=== PATIENT | male | born 1995 | race Caucasian/White ===

== ENCOUNTER 2020-07-03 19:23 | Emergency (ER) | payer BC, SELFPAY ==
[2020-07-03 19:32] VITALS: BP 149/91; PULSE 79; RESP 17; TEMP 36.6; O2SAT 99; BMI 28.3
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
[2020-07-03 19:37] VITALS: BP 149/91; PULSE 77; RESP 17; O2SAT 100
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
[2020-07-03] MEDS: ondansetron 2 mg/ML SDV 2 mL 4 MG IM (19:54)
[2020-07-03 19:55] VITALS: RESP 19; O2SAT 100
[2020-07-03] MEDS: morphine 4 mg/mL SDV 1 mL IVP (19:55)
[2020-07-03] MEDS: iodixanol 320 mg/mL 100mL Btl IV (20:12)
[2020-07-03 21:31] VITALS: BP 145/84; PULSE 72; RESP 18; O2SAT 99
== END 2020-07-03 21:31 | disposition home or self-care (01) ==
PROVIDERS: Emergency Provider Emergency Medicine
DX: S30.811A Abrasion of abdominal wall, initial encounter (principal); S20.319A Abrasion of unspecified front wall of thorax, initial encounter; V29.9XXA Motorcycle rider (driver) (passenger) injured in unspecified traffic accident, initial encounter
CPT/HCPCS: 71045; 73552; 74177; 96372; 96374; 99283; J2270; J2405; Q9967

== ENCOUNTER 2020-10-23 05:24 | Emergency (ER) | payer BC, SELFPAY ==
[2020-10-23 05:28] VITALS: PULSE 97; RESP 22; TEMP 36.9; O2SAT 100; BMI 29.4
[2020-10-23 05:35] VITALS: BP 120/61; PULSE 89; RESP 20; O2SAT 100
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
--- NOTE | 2020-10-23 05:36 | CTR_ITS ---
PROCEDURE INFORMATION: Exam: CT Abdomen And Pelvis Without Contrast Exam date and time: 10/23/2020 5:36 AM Age: 24 years old Clinical indication: Abdominal pain; Prior surgery; Surgery type: Appy; Patient HX: Left flank pain. History of left calcified adrenal gland. TECHNIQUE: Imaging protocol: Computed tomography of the abdomen and pelvis without contrast. Radiation optimization: All CT scans at this facility use at least one of these dose optimization techniques: automated exposure control; mA and/or kV adjustment per patient size (includes targeted exams where dose is matched to clinical indication); or iterative reconstruction. COMPARISON: CT abdomen pelvis w con* [id number] 07/03/2020 8:25 PM RADIATION DOSE METRICS: Total DLP (mGy-cm): 1443.97 FINDINGS: Lungs: The lung bases are clear. Mediastinal space: Small hiatal hernia, about 3 cm in diameter. This is a new finding in the interval. Liver: Unremarkable. Gallbladder and bile ducts: No definite gallbladder abnormality by CT. No biliary tree dilation. Pancreas: Unremarkable. Spleen: Unremarkable. Adrenal glands: Calcifications are again seen in the left adrenal gland, not significantly changed. This may be secondary to prior/remote hemorrhage or infection. The right adrenal gland appears unremarkable. Kidneys and ureters: Mild left hydronephrosis and hydroureter. There is a 3 mm distal left ureteral calculus, at the UVJ. The calculus is probably in the intramural portion of the distal left ureter. It is possible that it has already been passed into the urinary bladder. Please correlate clinically. No definite/visible intrarenal calculus. The right kidney appears essentially unremarkable. Stomach and bowel: There are no CT findings to strongly suggest diverticulitis. Appendix: Reportedly, there has been prior appendectomy. Intraperitoneal space: No free air, ascites, or bowel distention. Vasculature: No evidence for abdominal aortic aneurysm. Lymph nodes: No retroperitoneal adenopathy. Urinary bladder: The urinary bladder is essentially empty, limiting evaluation. Reproductive: Essentially unremarkable for age. Bones/joints: No significant acute finding. Soft tissues: Several umbilical region and supraumbilical region ventral hernias, containing only fat. The appearance is similar to the prior exam. CT/CT kidney stone [id number] IMPRESSION: 1. 3 mm distal left ureteral calculus, see above details. 2. Mild left hydronephrosis and hydroureter. 3. Small hiatal hernia. 4. Other findings discussed above. Radiation Dose CTDIVOL = (mGy): DLP = 1443.97 (mGy-cm)
[2020-10-23 05:53] LABS: Add Urine Culture? No; Add Urine Microscopic? YES; Bacteria Urine TRACE /hpf; Bilirubin Urine 1+ (Negative); Blood Urine 2+ (Negative); Glucose Urine UA Norm (Normal); Ketones Urine Negative (Negative); Leukocyte Esterase Urine Negative (Negative); Mucus Urine 2+ /hpf; Nitrate Urine Negative (Negative); Protein Urine Neg (Negative); Specific Gravity, Urine 1.025 (1.005-1.030); Squamous Epithelial Cell Urine 0-4 /hpf (0-5); Urine Appearance Clear (CLEAR); Urine Color Yellow (Yellow); Urobilinogen Urine 1 mg/dL (Negative); WBC Urine 0-4 /hpf (0-5); pH Urine 5 (5-7)
[2020-10-23] MEDS: ketorolac 30 mg/mL INJ 15 MG IVP (05:54)
[2020-10-23] MEDS: ondansetron 2 mg/ML SDV 2 mL 4 MG IVP (05:55)
[2020-10-23] MEDS: sodium chloride 0.9% 1,000 ML 999 ML IV (05:55)
[2020-10-23 06:00] LABS: Basophils # 0.1 10^3/uL (0.0-0.1); Basophils % 0.9 %; Eosinophils # 0.1 10^3/uL (0.0-0.8); Eosinophils % 1.6 %; Hematocrit 42.6 % (42.0-52.0); Hemoglobin 14.3 g/dL (11.7-16.6); Lymphocytes # 3.4 10^3/uL (0.8-4.8); Lymphocytes % 50.4 %; Mean Corpuscular HGB Conc 33.6 g/dL (30.0-36.0); Mean Corpuscular Hemoglobin 29.1 pg (28.0-34.0); Mean Corpuscular Volume 86.6 fL (80-94); Monocytes # 0.8 10^3/uL (0.2-0.9); Monocytes % 11.4 %; Neutrophils # 2.41 10^3/uL (1.8-7.7); Neutrophils % 35.4 %; Nucleated Red Blood Cells % 0 %; Platelet Count 396 10^3/cmm (130-400); Red Blood Count 4.92 10^6/uL (4.1-5.3); Red Cell Distribution Width 12.6 % (12.1-15.1); White Blood Count 6.8 10^3/uL (4.0-10.0)
[2020-10-23 06:03] VITALS: BP 107/45; PULSE 89; RESP 20; TEMP 36.9; O2SAT 100
[2020-10-23 06:33] LABS: Alanine Aminotransferase 31 U/L (0-41); Albumin Level 4.3 g/dL (3.5-5.2); Alkaline Phosphatase 73 IU/L (40-130); Anion Gap 20.2 (5-19); Aspartate Amino Transferase 32 U/L (0-40); Blood Urea Nitrogen 14 mg/dL (6-20); Calcium 8.9 mg/dL (8.5-10.5); Carbon Dioxide 19 mmol/L (22-29); Chloride 103 mmol/L (98-107); Globulin 2.9 g/dL (1.3-4.6); Glomerular Filtration Rate 93.4 mL/min (90-130); Glucose 123 mg/dL (65-115); Osmolality Calculated 290 mOsm/kg (285-295); Potassium 3.2 mmol/L (3.5-5.1); Sodium 139 mmol/L (136-145); Total Bilirubin 0.9 mg/dL (0.15-1.2); Total Protein 7.2 g/dL (6.6-8.7)
[2020-10-23 08:31] VITALS: BP 103/57; O2SAT 98
[2020-10-23] MEDS: potassium chloride oral liq 20 mEq/15 mL UDC 80 MEQ PO (08:40)
[2020-10-23 08:45] VITALS: BP 109/82; PULSE 56; RESP 17; O2SAT 99
[2020-10-23 08:49] VITALS: BP 109/82; PULSE 56; RESP 17; O2SAT 99
--- NOTE | 2020-10-23 09:55 | DCPLANNER ---
manager auto had message to schedule a follow up appointment for patient with Dr. Mendez for left ureterolithiasis. manager auto called the office of Dr. Mendez, spoke with Edda, gave clinic patients information. manager auto was told that patients information would be printed and reviewed. Clinic will call patient with appointment information.
--- NOTE | 2020-10-25 10:00 | DCPLANNER ---
Patient has a follow up appointment scheduled for Thursday, November 26, [address] at 4:[address] Mendez. Clinic will call patient with appointment information.
--- NOTE | 2020-11-28 12:44 | DCPLANNER ---
Patient had a follow up appointment scheduled for 11.26.20 - appointment was rescheduled.
== END 2020-10-23 08:48 | disposition home or self-care (01) ==
PROVIDERS: Emergency Medicine; Emergency Provider Family Medicine
DX: N20.1 Calculus of ureter (principal)
CPT/HCPCS: 74176; 80053; 81001; 85025; 96361; 96374; 96375; 99284; J1885; J2405; J7030

== ENCOUNTER 2022-03-15 13:33 | Emergency (ER) | payer SELFPAY ==
[2022-03-15 13:44] VITALS: BP 126/80; PULSE 87; RESP 16; TEMP 37.4; O2SAT 97; BMI 29.5
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
[2022-03-15 16:26] VITALS: PULSE 79; O2SAT 98
== END 2022-03-15 16:20 | disposition home or self-care (01) ==
PROVIDERS: Emergency Provider Family Medicine; PCP Urology
DX: S00.03XA Contusion of scalp, initial encounter (principal); S16.1XXA Strain of muscle, fascia and tendon at neck level, initial encounter; W17.89XA Other fall from one level to another, initial encounter
CPT/HCPCS: 70450; 72125; 99284

== ENCOUNTER 2022-03-22 15:10 | Emergency (ER) | payer SELFPAY ==
--- NOTE | 2022-03-22 15:11 | XRR_ITS ---
PROCEDURE INFORMATION: Exam: XR Right Wrist Exam date and time: 03/22/2022 3:17 PM Age: 26 years old Clinical indication: Injury or trauma; Other: Wood cutting blunt trauma; Blunt trauma (contusions or hematomas); Injury details: Pain in metacarpal of 1st digit of right hand, included on wrist x rays TECHNIQUE: Imaging protocol: Radiologic exam of the Right wrist. Views: 3 or more views. COMPARISON: No relevant prior studies available. FINDINGS: Bones/joints: Osseous structures are intact. Negative for fracture. Joint spaces are preserved. Soft tissues: Normal. XR/XR wrist RT min 3V* [id number] IMPRESSION: No acute findings.
[2022-03-22 15:12] VITALS: BP 139/90; PULSE 80; RESP 16; TEMP 36.9; O2SAT 98
--- NOTE | 2022-03-22 15:21 | W.ED.EXTPRO ---
HPI - Extremity Problem General: Chief complaint: Extremity Injury, Upper Stated complaint: right wrist pain Time Seen by Provider: 03/22/22 15:11 Source: patient Mode of arrival: ambulatory Limitations: no limitations History of Present Illness: 26-year-old male states that he had a stack of wood fall on his right hand yesterday been having pain to his right palm since then and bruising states the pain is a 5 out of 10 worse with movement improved with rest. Associated symptoms: Deny chest pain, fever(s) or rash Review of Systems Const: Denies: fever(s), chills, body aches or change in appetite Eyes: Denies: blurry vision or eye discomfort ENMT: Denies: throat pain or dental pain Card: Denies: chest pain Resp: Denies: dyspnea GI: Denies: abdominal pain, nausea, vomiting or diarrhea : Denies: dysuria Musc: Reports: extremity pain Skin/Breast: Denies: rash Neuro: Denies: headache(s) Psych: Denies: depression Mervin/Lymph: Denies: easy bruising All/Imm: Denies: urticaria PFSH ED PFSH: Medical History No pertinent past medical history Social History Smoking and tobacco status: never smoked Physical Exam Const: COMMON NORMALS: no acute distress and patient oriented x3 HENMT: COMMON NORMALS: normocephalic HEAD & SCALP: normocephalic Eye: COMMON NORMALS: conjunctivae normal CONJUNCTIVA: Yes conjunctivae normal Neck/C-Spine: COMMON NORMALS: supple Chest: COMMONS NORMALS: normal inspection of the chest Resp: COMMON NORMALS: normal respiratory effort Cardio: COMMON NORMALS: regular rate RATE: regular rate GI: INSPECTION: Yes normal to inspection Extremity: OTHER: Bruising to right hand at the thenar eminence with tenderness Neuro: COMMON NORMALS: patient oriented x3 Psych: COMMON NORMALS: mental status grossly normal Skin: COMMON NORMALS: no rashes or lesions noted GENERAL SKIN EXAM: no rashes or lesions noted Course Vital Signs: Vital signs: Vital Signs Temperature 98.5 F 03/22/22 15:12 Pulse Rate 80 03/22/22 15:12 Respiratory Rate 16 03/22/22 15:12 Blood Pressure 139/90 03/22/22 15:12 Pulse Oximetry 98 03/22/22 15:12 MDM - Extremity (Nontraumatic) Medical Decision Making Patient presents with a hand contusion x-ray shows no fracture patient Devan wrap he is to ice he is stable for discharge. Lab Data Radiology Impressions Wrist X-Ray 03/22/22 15:11 IMPRESSION: No acute findings. Discharge Plan Discharge Patient Disposition: Home Clinical Impression: Contusion of hand Condition: Stable Prescriptions: New Naprosyn 500 mg tablet 500 mg PO BID PRN (Reason: pain) Qty: 20 0RF No Action cephalexin 500 mg capsule 500 mg PO Q12H 7 Days Qty: 14 0RF methylprednisolone [Medrol (Maicol)] 4 mg tablets,dose pack See Rx Instructions PO PER PKG DIR Qty: 21 0RF Rx Instructions: PO PER PKG DIR pantoprazole 40 mg tablet,delayed release (DR/EC) 40 mg PO DAILY hydrocodone-acetaminophen 5-325 mg tablet 1 tab PO Q6H PRN (Reason: pain) Qty: 20 0RF Zofran 4 mg tablet 4 mg PO Q6H PRN (Reason: nausea and vomiting) Qty: 20 0RF tamsulosin 0.4 mg capsule 0.4 mg PO DAILY Qty: 30 0RF cyclobenzaprine 10 mg tablet 10 mg PO TID PRN (Reason: muscle spasm) Qty: 12 1RF Discharge Orders: Discharge ED (Routine); Ordered 03/22/22 Ordered By: Dipika Mancera Referrals: Shaan Mendez MD [Primary Care Provider] - Discharge Diet: Advance as tolerated Discharge Activity: Resume usual activity Patient Instructions: Contusion in Adults (ED) Coding Level of Care Code ED Supervisor Production for Chg Fwd Exam Comprehensive
== END 2022-03-22 15:35 | disposition home or self-care (01) ==
PROVIDERS: Emergency Provider Emergency Medicine; PCP Urology
DX: S60.221A Contusion of right hand, initial encounter (principal); W20.8XXA Other cause of strike by thrown, projected or falling object, initial encounter
CPT/HCPCS: 73110; 99283

== ENCOUNTER 2022-05-15 12:21 | Emergency (ER) | payer OTHER, SELFPAY ==
[2022-05-15 12:33] VITALS: BP 127/75; PULSE 68; RESP 14; TEMP 36.8; O2SAT 98
--- NOTE | 2022-05-15 13:22 | W.ED.SKABFB ---
HPI - Skin/Abscess/Foreign Bdy General: Chief complaint: Skin/Abscess/Foreign Body Stated complaint: spider bite and infected Time Seen by Provider: 05/15/22 13:03 Source: patient and family Mode of arrival: ambulatory Limitations: no limitations History of Present Illness: This patient makes his way to the emergency department today because of concerns about an air redness and inflammation in his right lower leg. Dates he noted this 2 days ago. He states he was seen at urgent care clinic and apparently an aspiration was attempted. He states he was also prescribed antibiotics but has not taken those yet. He is unaware of any known bite or injury. He denies any fevers or chills. He states he has had increasing redness in the area and some soreness in his more proximal leg. He denies any fevers or chills numbness weakness etc. No history of allergies to bites or stings. He is unaware of his last tetanus. MD complaint: insect bite/sting and discoloration Location: RLE Severity: moderate Quality: burning and aching Relieving factors: none Exacerbating factors: none Associated symptoms: Deny chills, fever(s), nausea or vomiting Treatments prior to arrival: OTC topical medication Review of Systems Const: Denies: fever(s) or chills Eyes: Denies: change in vision ENMT: Denies: throat pain or odynophagia Card: Denies: palpitations, lightheadedness, syncope or pre-syncope Resp: Denies: dyspnea, wheezing or stridor GI: Denies: abdominal pain, nausea or vomiting Musc: Reports: extremity pain Skin/Breast: Reports: rash, erythema and skin tenderness Neuro: Denies: headache(s), numbness in extremities or weakness in extremities PFSH ED PFSH: Medical History No pertinent past medical history Social History Smoking and tobacco status: never smoked Physical Exam Narrative: EXAM NARRATIVE: He makes good eye contact. Appears to be in no acute distress. Answers questions in an appropriate goal-directed fashion. Const: COMMON NORMALS: no acute distress, average body habitus and patient oriented x3 GENERAL APPEARANCE: cooperative and comfortable HENMT: COMMON NORMALS: normocephalic HEAD & SCALP: normocephalic FACE & SINUS: normal facial exam Eye: COMMON NORMALS: Equal, round and reactive pupils present and no scleral icterus PUPIL: Yes Equal, round and reactive pupils present Neck/C-Spine: COMMON NORMALS: full ROM Resp: COMMON NORMALS: normal respiratory effort, No retractions and No use of accessory muscles EFFORT & INSPECTION: Yes able to speak in complete sentences Cardio: COMMON NORMALS: Peripheral pulses 2+ throughout PERIPHERAL PULSES: Peripheral pulses 2+ throughout Back/Pelvis: COMMON NORMALS: thoracic and lumbar spine normal to inspection Extremity: RIGHT LOWER EXTREMITY: Yes lower leg OTHER: Examination of musculoskeletal system with attention to his right lower leg reveals an area right middle third of his lower leg on the lateral aspect. There is an area of erythema that measures approximately 5 cm in diameter and its greatest measurement. There is an area approximately 5 mm in the center of this erythema that is dark and necrotic appearing. There is no fluctuance noted. There is no drainage noted. There is no proximal lymphangitis or lymphadenopathy noted. He has normal range of motion at the knee and hip. No inguinal adenopathy noted today. Neurovascular intact distally. Neuro: COMMON NORMALS: patient oriented x3, moves all extremities, no focal motor deficits and no sensory deficits noted Skin: COMMON NORMALS: turgor normal SKIN IMAGES (MALE): 1. Area of erythema with 5 mm central necrosis. GENERAL SKIN EXAM: turgor normal, erythema (Right middle third lateral leg), no fluctuance, no petechiae and no purpura Course Vital Signs: Vital signs: Vital Signs Temperature 98.2 F 05/15/22 12:33 Pulse Rate 68 05/15/22 12:33 Respiratory Rate 14 05/15/22 12:33 Blood Pressure 127/75 05/15/22 12:33 Pulse Oximetry 98 05/15/22 12:33 Oxygen Delivery Me thod 05/15/22 12:33 MDM - Skin/Abscess/Foreign Bdy Medicial Decision Making Gentleman who presented to the emergency department because of concerns about increasing redness and soreness in his right leg. Previously seen at urgent care where aspiration was performed without any fluid return antibiotics prescribed but not taken. No systemic symptoms. No evidence today that suggest systemic illness to include sepsis etc. He is current clinical picture suggest spider bite and given the clinical picture in the time of the year strongly supports likely brown recluse bite. He has what appears to be secondary cellulitis to the region as well. He has a prescription for trimethoprim sulfa and I encouraged him to begin that medication and complete it. We will also update his tetanus and provide a single injection of dexamethasone. We discussed likely and usual course of such bites but also discussed reasons to return to the emergency department. Both he and his family voiced understanding of our discussion. Stable at this time for discharge with return precautions. Discharge Plan Discharge Patient Disposition: Home Clinical Impression: Cellulitis, Brown recluse spider bite Condition: Stable Prescriptions: No Action sulfamethoxazole-trimethoprim [Bactrim DS] 800-160 mg tablet 1 tab PO BID 7 Days Qty: 14 0RF pantoprazole 40 mg tablet,delayed release (DR/EC) 40 mg PO DAILY Discharge Orders: Discharge ED (Routine); Ordered 05/15/22 Ordered By: Ernie Ferreira Referrals: Shaan Mendez MD [Primary Care Provider] - Discharge Diet: Usual diet Discharge Activity: Increase activity as tolerated Patient Instructions: Opioid Safety, Pain Management Activity Restrictions/Additional Instructions: As we discussed you appearance today suggest that you have sustained a bite from a likely brown recluse spider. He also have evidence of localized infection. We recommend you continue the antibiotics prescribed. We have also updated your tetanus shot and give Anti-inflammatories as well. Keep this area clean with normal soap and water and likely cover it with a Band-Aid over the crusted portion to prevent irritation and formation by clothing. The redness should improve over the next 2 to 3 days however if it does not improve in that period of time or worsens or you develop other symptoms such as fevers, increasing pain, any other concerns return to this emergency department for follow-up. Stand Alone Forms: Work/School Release Coding Level of Care Code ED Research Editor for Mayra Ladd
[2022-05-15] MEDS: tetanus-dipt-pertussis 0.5 mL SDV IM (13:31)
[2022-05-15] MEDS: dexamethasone 10 mg/mL INJ IM (13:31)
[2022-05-15 13:57] VITALS: BP 127/75; PULSE 68; RESP 16; TEMP 36.8; O2SAT 98
== END 2022-05-15 13:58 | disposition home or self-care (01) ==
PROVIDERS: Emergency Provider Emergency Medicine; PCP Urology
DX: T63.331A Toxic effect of venom of brown recluse spider, accidental (unintentional), initial encounter (principal); L03.115 Cellulitis of right lower limb; Z23 Encounter for immunization
CPT/HCPCS: 90471; 90715; 96372; 99284; J1100